=== PATIENT | female | born 1985 | race Caucasian/White ===

== ENCOUNTER → 2017-03-19 | Outpatient (CLI) | payer MEDICAID, OTHER ==
--- NOTE | 2017-03-19 09:39 | REP ---
Left wrist pain times 3 months. PRIORS: None. FINDINGS: No acute fracture or destructive osseous lesion. If the patient is experiencing chronic pain, consider followup with MRI.
== END ==
LOC: M CLY 08:46
PROVIDERS: ATTEND Family Medicine
DX: M25.532 Pain in left wrist (principal)

== ENCOUNTER → 2018-01-06 | Outpatient (CLI) | payer OTHER | LOC: M CLY 11:09 | DX: M25.562 Pain in left knee (principal) | CPT/HCPCS: 73564 ==

== ENCOUNTER → 2018-10-14 | Outpatient (REF) | payer OTHER | LOC: M SFHCCLAY 14:42 | PROVIDERS: ATTEND Family Medicine | DX: J02.9 Acute pharyngitis, unspecified (principal) ==

== ENCOUNTER → 2020-12-25 | Outpatient (CLI) | payer SELFPAY | LOC: M LABSMTC 13:38 | PROVIDERS: ATTEND Pediatrics | DX: Z11.52 Encounter for screening for COVID-19 (principal) ==

== ENCOUNTER → 2021-01-23 | Outpatient (REF) | payer OTHER, MEDICAID ==
[2021-01-23 14:51] LABS: HEMATOCRIT 43.9 % (36.0-47.0); HEMOGLOBIN 14.3 g/dl (12.0-15.5); MEAN CORPUSCULAR HEMOGLOBIN 30.6 pg (27.0-33.0); MEAN CORPUSCULAR HGB CONC 32.6 g/dl (32.0-36.5); MEAN CORPUSCULAR VOLUME 93.8 fl (80.0-96.0); PLATELET COUNT, AUTOMATED 289 10^3/uL (150-450); RED BLOOD COUNT 4.68 10^6/uL (4.00-5.40); WHITE BLOOD COUNT 8.3 10^3/uL (4.0-10.0)
[2021-01-23 15:24] LABS: FREE T4 0.83 NG/DL (0.76-1.46); THYROID STIMULATING HORMONE 0.859 uIU/ML (0.358-3.740)
[2021-01-25 14:40] LABS: CHLAMYDIA DNA AMPLIFICATION NEGATIVE (NEGATIVE); GC DNA AMPLIFICATION NEGATIVE (NEGATIVE)
== END ==
LOC: M PLALAB 11:46
PROVIDERS: ATTEND Nurse Practitioner Women's Health
DX: Z31.69 Encounter for other general counseling and advice on procreation (principal)

== ENCOUNTER → 2021-03-11 | Outpatient (REF) | payer OTHER, MEDICAID | LOC: M PLALAB 16:17 | PROVIDERS: ATTEND Obstetrics & Gynecology | DX: N97.9 Female infertility, unspecified (principal) ==

== ENCOUNTER → 2021-03-27 | Outpatient (REF) | payer OTHER, MEDICAID ==
[2021-03-27 20:00] LABS: ESTRADIOL 27.3 PG/ML; FOLLICLE STIMULATING HORMONE 8.2 mIU/mL; HEPATITIS C VIRUS ABY INDEX < 0.0 INDEX (<0.8); HIV 1&2 SCREEN CENTAUR NEGATIVE (NEGATIVE); LUTEINIZING HORMONE 4.8 mIU/mL; PROLACTIN 5.6 NG/ML
== END ==
LOC: M PLALAB 14:55
PROVIDERS: ATTEND Obstetrics & Gynecology
DX: N97.9 Female infertility, unspecified (principal)

== ENCOUNTER → 2021-04-05 | Outpatient (CLI) | payer OTHER ==
[~2021-04-05] MED LIST: ISOVUE-370 76% 100ML VIAL As Ordered ONE
== END ==
LOC: M RADPRO 12:21
PROVIDERS: ATTEND Obstetrics & Gynecology
DX: N97.9 Female infertility, unspecified (principal); Z53.9 Procedure and treatment not carried out, unspecified reason

== ENCOUNTER → 2021-04-15 | Outpatient (CLI) | payer OTHER, MEDICAID | LOC: M PLALAB 13:22 | PROVIDERS: ATTEND Obstetrics & Gynecology | DX: N97.9 Female infertility, unspecified (principal) ==

== ENCOUNTER → 2021-04-30 | Outpatient (CLI) | payer OTHER | LOC: M RADPRO 12:15 | PROVIDERS: ATTEND Specialist | DX: N92.6 Irregular menstruation, unspecified (principal) | CPT/HCPCS: 58340; 74740; Q9967 ==

== ENCOUNTER → 2022-06-26 | Outpatient (REF) | payer OTHER, MEDICAID ==
[2022-06-26 22:19] LABS: THYROID PEROXIDASE ANTIBODY < 28.0 U/ML (<60.0)
== END ==
LOC: M LAB REF 16:09
PROVIDERS: ATTEND Nurse Practitioner Adult Health
DX: R63.5 Abnormal weight gain (principal); Z13.89 Encounter for screening for other disorder

== ENCOUNTER → 2022-11-12 | Outpatient (REF) | payer OTHER, MEDICAID | LOC: M LAB REF 16:06 | PROVIDERS: ATTEND Nurse Practitioner Adult Health | DX: N39.0 Urinary tract infection, site not specified (principal) ==

== ENCOUNTER → 2023-08-12 | Outpatient (CLI) | payer OTHER, MEDICAID | LOC: M LAB 15:05 | PROVIDERS: ATTEND Nurse Practitioner Family | DX: R14.0 Abdominal distension (gaseous) (principal) ==

== ENCOUNTER → 2023-12-21 | Outpatient (REF) | payer OTHER, MEDICAID | LOC: M LAB REF 11:59 | PROVIDERS: ATTEND Physician Assistant Medical | DX: J02.9 Acute pharyngitis, unspecified (principal) ==

== ENCOUNTER 2024-06-02 08:22 | Day surgery (SDC) | payer OTHER, MEDICAID ==
[~2024-06-02] VITALS: Ht 167.6 cm; Wt 74.2 kg
[~2024-06-02 08:22] MED LIST changes: +IBUP200C29 PO; -ISOVUE-370 76% 100ML VIAL As Ordered ONE
[2024-06-02] MEDS: NS 1,000 ML IV ONE (09:44)
[2024-06-02] MEDS ORDERED: propofoL 500 MG/50 ML VIAL As Ordered ONE (10:47)
[2024-06-02] MEDS ORDERED: LIDOCAINE 2% 100MG/5ML SDV (FOR ANES.) As Ordered ONE (10:47)
[2024-06-02 11:00] VITALS: TEMP 98.1
[2024-06-02 11:15] VITALS: BP 145/68; O2SAT 100
== END 2024-06-02 11:22 | disposition home or self-care (01) ==
LOC: M OPP 08:22
PROVIDERS: ATTEND Internal Medicine Gastroenterology
DX: K64.8 Other hemorrhoids (principal); K58.1 Irritable bowel syndrome with constipation; F17.290 Nicotine dependence, other tobacco product, uncomplicated; Z79.1 Long term (current) use of non-steroidal anti-inflammatories (NSAID); Z88.8 Allergy status to other drugs, medicaments and biological substances; Z91.040 Latex allergy status

== ENCOUNTER → 2024-06-22 | Outpatient (CLI) | payer OTHER, MEDICAID | LOC: M RAD 14:56 | PROVIDERS: ATTEND Physician Assistant | DX: S60.922A Unspecified superficial injury of left hand, initial encounter (principal); Y93.9 Activity, unspecified; Y92.9 Unspecified place or not applicable ==

== ENCOUNTER 2024-11-24 10:43 | Emergency (ER) | payer OTHER, MEDICAID ==
[~2024-11-24] VITALS: Ht 167.6 cm; Wt 76.1 kg
[2024-11-24 16:16] VITALS: BP 128/72; TEMP 98; O2SAT 100
== END 2024-11-24 16:17 | disposition home or self-care (01) ==
LOC: M ED 10:43
DX: J09.X2 Influenza due to identified novel influenza A virus with other respiratory manifestations (principal); Z88.8 Allergy status to other drugs, medicaments and biological substances; Z91.040 Latex allergy status

== ENCOUNTER 2025-05-10 12:53 | Emergency (ER) | payer OTHER, MEDICAID ==
[2025-05-10] VITALS (7 sets, daily range): BP systolic 115–130; BP diastolic 62–80; TEMP 98–99.6; O2SAT 96–99
[~2025-05-10] VITALS: Ht 167.6 cm; Wt 73.0 kg
[2025-05-10 13:52] LABS: INR 0.92
[2025-05-10 13:59] LABS: PLATELET COUNT, AUTOMATED 9 10^3/uL (150-450)
[2025-05-10 14:10] LABS: ALT/SGPT 21 U/L (7.0-40); AST/SGOT 29 U/L (<34); CALCIUM LEVEL 8.8 MG/DL (8.5-10.1); CARBON DIOXIDE LEVEL 22 MMOL/L (20-31); CHLORIDE LEVEL 106 MMOL/L (98-107); CREATININE FOR GFR 0.76 MG/DL (0.55-1.30); GLOMERULAR FILTRATION RATE > 90.0 (>60); POTASSIUM SERUM 4.1 MMOL/L (3.5-5.1); SODIUM LEVEL 141 MMOL/L (136-145)
[2025-05-10 14:21] LABS: EOSINOPHILS 1 % (0-3); LYMPHOCYTES 21 % (16-44); METAMYELOCYTES 1 % (0-0); MONOCYTES 9 % (0-5); MYELOCYTES 2 % (0-0); NEUTROPHILS 26 % (28-66); PROMYELOCYTES 4 % (0-0)
[2025-05-10 14:25] LABS: BLAST CELLS 36 % (0-0); PLATELET ESTIMATE MARKED DECREASE (NORMAL)
[2025-05-10 15:09] LABS: LDH LACTATE DEHYDROGENASE 372 U/L (120-246)
[2025-05-10 18:20] LABS: VITAMIN B12 LEVEL 727 PG/ML (211-911)
[2025-05-10] MEDS: ACETAMINOPHEN 325 MG TAB PO STA (20:40)
[2025-05-10] MEDS: ONDANSETRON 4MG ORAL DISINTEGRATING TAB PO ONE (21:12)
== END 2025-05-10 21:02 | disposition short-term general hospital (02) ==
LOC: M ED 12:53
DX: R79.9 Abnormal finding of blood chemistry, unspecified (principal); F17.290 Nicotine dependence, other tobacco product, uncomplicated; Z88.8 Allergy status to other drugs, medicaments and biological substances; Z91.040 Latex allergy status
CPT/HCPCS: 36430; 80053; 80503; 82607; 83615; 84550; 85025; 85049; 85055; 85384; 85610; 85730; 86850; 86900; 86901; 87426; 99285; P9034

== ENCOUNTER 2025-07-27 17:07 | Emergency (ER) | payer OTHER ==
[~2025-07-27] VITALS: Ht 167.6 cm; Wt 72.7 kg
[~2025-07-27 17:07] MED LIST changes: +ACET1TAB55 PO; +ACYC-438; +GABA-1171; +LEVO1TAB39; +LORA1TAB23 PO; +MEDR10TA9; +NORM0.9I21; +ONDA-84; +PANT40TA29; +POSA100T; +SUCR1ORA
[2025-07-27] MEDS ORDERED: NEUR100C PO (17:39)
[2025-07-27] MEDS ORDERED: NOXA1TAB PO (17:39)
[2025-07-27] MEDS ORDERED: LEVO1TAB39 PO (17:39)
[2025-07-27] MEDS ORDERED: ACET-683 PO (17:39)
[2025-07-27] MEDS ORDERED: BD P0.9I2 IV (17:39)
[2025-07-27] MEDS ORDERED: PANT40TA29 PO (17:39)
[2025-07-27] MEDS ORDERED: ACYC-438 PO (17:39)
[2025-07-27] MEDS: diphenhydrAMINE 50 MG/ML VIAL IV STA (18:36)
[2025-07-27 18:59] VITALS: BP 114/63; TEMP 97.6; O2SAT 100
[2025-07-27 19:16] VITALS: BP 108/61; TEMP 97.6; O2SAT 100
[2025-07-27 20:17] VITALS: BP 108/57; TEMP 97; O2SAT 98
[2025-07-27 21:09] VITALS: BP 103/59; TEMP 97.3; O2SAT 100
[2025-07-27 21:25] VITALS: BP 96/57; TEMP 97.9; O2SAT 98
[2025-07-27] MEDS: ACETAMINOPHEN 500 MG TAB PO ONE (22:32)
[2025-07-27 23:00] VITALS: BP 101/57; TEMP 97.9; O2SAT 100
[2025-07-28] MEDS ORDERED: LORA1TAB23 PO (16:53)
[2025-08-01] MEDS ORDERED: ACET1TAB55 PO (14:22)
[2025-08-01] MEDS ORDERED: DIPH12.529 PO (14:22)
== END 2025-07-27 23:03 | disposition home or self-care (01) ==
LOC: M ED 17:07
DX: C92.00 Acute myeloblastic leukemia, not having achieved remission (principal); D69.6 Thrombocytopenia, unspecified
CPT/HCPCS: 36430; 80053; 83615; 85025; 85049; 85055; 96374; 99285; J1200; P9034

== ENCOUNTER 2025-07-28 15:16 | Observation (INO) | payer OTHER ==
[2025-07-28] VITALS (7 sets, daily range): BP systolic 94–112; BP diastolic 50–72; TEMP 97.1–98.7; O2SAT 97–100
[~2025-07-28] VITALS: Ht 167.6 cm; Wt 70.0 kg
[~2025-07-28 15:16] MED LIST changes: +ACET-683 PO; +ACYC-438 PO; +BD P0.9I2 IV; +LEVO1TAB39 PO; +NEUR100C PO; +NOXA1TAB PO; +PANT40TA29 PO
[2025-07-28] MEDS ORDERED: HEPARIN LOCK FLUSH 100 UNITS/ML 3 ML SYRINGE IV PRN (15:35)
[2025-07-28] MEDS ORDERED: SODIUM CHLORIDE 0.9% INJ 10 ML SYR IV PRN (15:35)
[2025-07-28] MEDS: HEPARIN LOCK FLUSH 100 UNITS/ML 3 ML SYRINGE IV SCH (15:55)
[2025-07-28] MEDS ORDERED: LORA1TAB23 PO (16:53)
[2025-07-28] MEDS ORDERED: HOME MED LIST COMPLETE! XX SCH (16:55)
[2025-07-28] MEDS: diphenhydrAMINE 50 MG/ML VIAL IV STA (16:59)
[2025-07-28] MEDS ORDERED: LORazepam 1 MG TAB PO PRN (18:55)
[2025-07-28] MEDS: SODIUM CHLORIDE 0.9% INJ 10 ML SYR IV SCH (19:45)
[2025-07-28] MEDS: ACYCLOVIR 200 MG CAPSULE PO SCH (21:27)
[2025-07-28] MEDS: GABAPENTIN 100 MG CAP PO SCH (21:27)
[2025-07-29] VITALS (13 sets, daily range): BP systolic 95–131; BP diastolic 50–77; TEMP 96.5–97.8; O2SAT 97–100
[2025-07-29 07:21] LABS: PLATELET COUNT, AUTOMATED 16 10^3/uL (150-450)
[2025-07-29 07:33] LABS: CALCIUM LEVEL 8.6 MG/DL (8.5-10.1); CARBON DIOXIDE LEVEL 26 MMOL/L (20-31); CHLORIDE LEVEL 109 MMOL/L (98-107); CREATININE FOR GFR 0.74 MG/DL (0.55-1.30); GLOMERULAR FILTRATION RATE > 90.0 (>60); POTASSIUM SERUM 4.4 MMOL/L (3.5-5.1); SODIUM LEVEL 144 MMOL/L (136-145)
[2025-07-29] MEDS: PANTOPRAZOLE 40MG TAB PO SCH (08:32)
[2025-07-29] MEDS: ACETAMINOPHEN 325 MG TAB PO PRN (08:52)
[2025-07-29] MEDS ORDERED: ENTER DRUG NAME HERE (PATIENT'S OWN MED) PO SCH (09:00)
[2025-07-29] MEDS ORDERED: diphenhydrAMINE 50 MG/ML VIAL IV ONE (11:45)
[2025-07-29] MEDS: diphenhydrAMINE 50 MG/ML VIAL IV ONE (13:27)
[2025-07-30 03:54] VITALS: BP 106/57; TEMP 97.8; O2SAT 98
[2025-07-30 07:40] LABS: BASO # 0.0 10^3/uL (0.0-0.2); BASO % 0.0 % (0.0-1.0); EOS # 0.0 10^3/uL (0.0-0.5); EOS % 8.1 % (0.0-3.0); LYMPH # 0.3 10^3/uL (1.5-5.0); LYMPH % 89.2 % (24.0-44.0); MONO # 0.0 10^3/uL (0.0-0.8); MONO % 0.0 % (2.0-8.0); NEUTROPHILS % 2.7 % (36.0-66.0)
[2025-07-30 07:41] LABS: NEUTROPHILS # 0.0 10^3/uL (1.5-8.5); PLATELET COUNT, AUTOMATED 18 10^3/uL (150-450)
[2025-07-30 08:19] VITALS: BP 105/57; TEMP 97.8; O2SAT 100
[2025-07-30 10:31] VITALS: BP 121/60; TEMP 97.7; O2SAT 99
[2025-07-30 10:51] VITALS: BP 124/78; TEMP 97.6; O2SAT 99
[2025-07-30 13:05] VITALS: BP 102/66; TEMP 97.2; O2SAT 100
[2025-08-01] MEDS ORDERED: ACET1TAB55 PO (14:22)
[2025-08-01] MEDS ORDERED: DIPH12.529 PO (14:22)
== END 2025-07-30 13:13 | disposition home or self-care (01) ==
LOC: M ED 15:16 → M ED INP 18:51 → M PCU 21:09
PROVIDERS: ADMIT Internal Medicine; ATTEND Internal Medicine
DX: C92.A0 Acute myeloid leukemia with multilineage dysplasia, not having achieved remission (principal); D61.810 Antineoplastic chemotherapy induced pancytopenia; Z79.899 Other long term (current) drug therapy; G62.9 Polyneuropathy, unspecified; F41.9 Anxiety disorder, unspecified
CPT/HCPCS: 36430; 70450; 80048; 85025; 85027; 85049; 85055; 86850; 86900; 86901; 86920; 96374; 96375; 96376; 99285; J1200; J1642; P9016; P9034

== ENCOUNTER 2025-08-05 11:13 | Emergency (ER) | payer OTHER ==
[~2025-08-05] VITALS: Ht 167.6 cm; Wt 71.8 kg
[~2025-08-05 11:13] MED LIST changes: +DIPH12.529 PO
[2025-08-05 12:27] LABS: PLATELET COUNT, AUTOMATED 31 10^3/uL (150-450)
[2025-08-05 12:47] LABS: ALT/SGPT 104 U/L (7.0-40); AST/SGOT 47 U/L (<34); CALCIUM LEVEL 9.1 MG/DL (8.5-10.1); CARBON DIOXIDE LEVEL 25 MMOL/L (20-31); CHLORIDE LEVEL 108 MMOL/L (98-107); CREATININE FOR GFR 0.64 MG/DL (0.55-1.30); GLOMERULAR FILTRATION RATE > 90.0 (>60); POTASSIUM SERUM 3.9 MMOL/L (3.5-5.1); SODIUM LEVEL 144 MMOL/L (136-145)
[2025-08-05 12:49] LABS: LYMPHOCYTES 6 % (16-44); METAMYELOCYTES 2 % (0-0); MONOCYTES 7 % (0-5); MYELOCYTES 1 % (0-0); NEUTROPHILS 79 % (28-66)
[2025-08-05 12:53] LABS: DOHLE BODIES 1+; PLATELET ESTIMATE MARKED DECREASE (NORMAL)
[2025-08-05] MEDS: NS (Normal Saline) 0.9% 1,000 ML IV ONE (13:15)
[2025-08-05 13:28] LABS: CK-MB VALUE MASS < 1.0 NG/ML (<3.6)
[2025-08-05 13:29] LABS: CPK CREATINE PHOSPHOKINASE 24 U/L (34-145)
[2025-08-05 13:32] LABS: HCG, SERUM QUALITATIVE NEGATIVE (NEGATIVE)
[2025-08-05] MEDS ORDERED: ISOVUE-370 76% 100 ML VIAL As Ordered ONE (13:53)
[2025-08-05 14:10] LABS: CK-MB VALUE MASS < 1.0 NG/ML (<3.6)
[2025-08-05 14:12] LABS: CPK CREATINE PHOSPHOKINASE 25 U/L (34-145)
[2025-08-05] MEDS: HEPARIN LOCK FLUSH 100 UNITS/ML 3 ML SYRINGE IV PRN (15:33)
[2025-08-05] MEDS: SODIUM CHLORIDE 0.9% INJ 10 ML SYR IV PRN (15:34)
[2025-08-05 15:52] LABS: CK-MB VALUE MASS < 1.0 NG/ML (<3.6)
[2025-08-05 15:54] LABS: CPK CREATINE PHOSPHOKINASE 21 U/L (34-145)
[2025-08-05 16:16] VITALS: TEMP 97.7
[2025-08-05 16:31] VITALS: BP 109/76; O2SAT 100
[2025-08-05] MEDS: SODIUM CHLORIDE 0.9% INJ 10 ML SYR IV SCH (16:41)
[2025-08-05] MEDS: HEPARIN LOCK FLUSH 100 UNITS/ML 3 ML SYRINGE IV SCH (16:41)
== END 2025-08-05 16:51 | disposition home or self-care (01) ==
LOC: M ED 11:13
DX: R42 Dizziness and giddiness (principal); C92.00 Acute myeloblastic leukemia, not having achieved remission; G62.9 Polyneuropathy, unspecified; Z79.899 Other long term (current) drug therapy; Z88.8 Allergy status to other drugs, medicaments and biological substances; Z91.040 Latex allergy status
CPT/HCPCS: 70450; 71275; 80047; 80053; 82550; 82553; 84484; 84703; 85025; 85049; 85055; 93005; 93971; 96360; 96361; 99285; J1642; Q9967

== ENCOUNTER 2025-09-11 19:46 | Emergency (ER) | payer OTHER ==
[~2025-09-11] VITALS: Ht 167.6 cm; Wt 68.2 kg
[2025-09-11 19:49] VITALS: TEMP 97.2
[2025-09-11] MEDS: ONDANSETRON 4MG/2ML VIAL IV ONE (20:40)
[2025-09-11] MEDS: ACETAMINOPHEN *IV* 1,000 MG in IV 1 EA IV ONE (20:40)
[2025-09-11 20:50] LABS: BASO # 0.0 10^3/uL (0.0-0.2); BASO % 0.0 % (0.0-1.0); EOS # 0.0 10^3/uL (0.0-0.5); EOS % 0.0 % (0.0-3.0); LYMPH # 0.2 10^3/uL (1.5-5.0); LYMPH % 27.5 % (24.0-44.0); MONO # 0.0 10^3/uL (0.0-0.8); MONO % 0.0 % (2.0-8.0); NEUTROPHILS % 66.7 % (36.0-66.0)
[2025-09-11 20:54] LABS: NEUTROPHILS # 0.5 10^3/uL (1.5-8.5)
[2025-09-11 20:55] LABS: PLATELET COUNT, AUTOMATED 19 10^3/uL (150-450)
[2025-09-11 21:24] LABS: ALT/SGPT 33 U/L (7.0-40); AST/SGOT 46 U/L (<34); CALCIUM LEVEL 8.4 MG/DL (8.5-10.1); CARBON DIOXIDE LEVEL 25 MMOL/L (20-31); CHLORIDE LEVEL 108 MMOL/L (98-107); CREATININE FOR GFR 0.59 MG/DL (0.55-1.30); GLOMERULAR FILTRATION RATE > 90.0 (>60); POTASSIUM SERUM 3.4 MMOL/L (3.5-5.1); SODIUM LEVEL 143 MMOL/L (136-145)
[2025-09-11] MEDS ORDERED: ISOVUE-370 76% 100 ML VIAL As Ordered ONE (21:27)
[2025-09-11] MEDS ORDERED: PEPC1TAB5 PO (23:52)
[2025-09-11] MEDS ORDERED: CARA1TAB6 PO (23:52)
[2025-09-12] MEDS: SUCRALFATE 1 GM TAB PO ONE (00:07)
[2025-09-12] MEDS: FAMOTIDINE IV BAG 20 MG in IV 1 EA IV ONE (00:07)
[2025-09-12 00:29] VITALS: BP 105/67; O2SAT 100
== END 2025-09-12 00:50 | disposition home or self-care (01) ==
LOC: M ED 19:46
DX: K29.80 Duodenitis without bleeding (principal); N80.9 Endometriosis, unspecified; Z85.6 Personal history of leukemia; Z92.21 Personal history of antineoplastic chemotherapy; Z79.899 Other long term (current) drug therapy; Z88.8 Allergy status to other drugs, medicaments and biological substances; Z91.040 Latex allergy status
CPT/HCPCS: 36430; 36592; 74177; 76705; 80048; 80053; 80076; 83605; 83690; 85025; 85027; 85049; 85055; 86850; 86900; 86901; 93041; 96365; 96366; 96368; 96372; 96375; 99285; J0134; J1308; J1642; J2405; P9034; Q5111; Q9967

== ENCOUNTER 2025-09-13 14:11 | Outpatient (CLI) | payer OTHER ==
[2025-09-13] VITALS (9 sets, daily range): BP systolic 103–123; BP diastolic 60–76; TEMP 97.8–98.7; O2SAT 98–100
[~2025-09-13 14:11] MED LIST changes: +CARA1TAB6 PO; +PEPC1TAB5 PO
[2025-09-13] MEDS: ACETAMINOPHEN 650 MG PO ONE (16:06)
== END 2025-09-13 22:15 ==
LOC: M OPCLI5PR 14:11 → M MS5PR 14:12 → M OPCLI5PR 22:15
PROVIDERS: ATTEND Internal Medicine Medical Oncology
DX: C92.00 Acute myeloblastic leukemia, not having achieved remission (principal); Z88.8 Allergy status to other drugs, medicaments and biological substances; Z91.040 Latex allergy status

== ENCOUNTER 2025-09-15 11:16 | Observation (INO) | payer OTHER ==
[2025-09-15] VITALS (7 sets, daily range): BP systolic 103–131; BP diastolic 66–77; TEMP 97.3–98.3; O2SAT 99–100
[~2025-09-15] VITALS: Ht 167.6 cm; Wt 73.9 kg
[2025-09-15] MEDS ORDERED: POSA100T PO (12:26)
[2025-09-15] MEDS ORDERED: ACET-683 PO (12:26)
[2025-09-15] MEDS ORDERED: FAMO20TA4 PO (12:26)
[2025-09-15] MEDS ORDERED: SUCR1TA PO (12:29)
[2025-09-15] MEDS ORDERED: HOME MED LIST COMPLETE! XX SCH (12:30)
[2025-09-15 12:41] LABS: BASO # 0.0 10^3/uL (0.0-0.2); BASO % 0.0 % (0.0-1.0); EOS # 0.0 10^3/uL (0.0-0.5); EOS % 0.0 % (0.0-3.0); LYMPH # 0.2 10^3/uL (1.5-5.0); LYMPH % 93.8 % (24.0-44.0); MONO # 0.0 10^3/uL (0.0-0.8); MONO % 0.0 % (2.0-8.0); NEUTROPHILS % 6.2 % (36.0-66.0)
[2025-09-15 12:46] LABS: NEUTROPHILS # 0.0 10^3/uL (1.5-8.5)
[2025-09-15 12:49] LABS: PLATELET COUNT, AUTOMATED 4 10^3/uL (150-450)
[2025-09-15 12:52] LABS: CALCIUM LEVEL 8.8 MG/DL (8.5-10.1); CARBON DIOXIDE LEVEL 24 MMOL/L (20-31); CHLORIDE LEVEL 110 MMOL/L (98-107); CREATININE FOR GFR 0.64 MG/DL (0.55-1.30); GLOMERULAR FILTRATION RATE > 90.0 (>60); POTASSIUM SERUM 3.6 MMOL/L (3.5-5.1); SODIUM LEVEL 144 MMOL/L (136-145)
[2025-09-15] MEDS ORDERED: LORazepam 1 MG TAB PO PRN (18:15)
[2025-09-15] MEDS: ACETAMINOPHEN 500 MG TAB PO PRN (19:34)
[2025-09-15] MEDS: FAMOTIDINE 20 MG TAB PO SCH (20:46)
[2025-09-15] MEDS: ACYCLOVIR 200 MG CAPSULE PO SCH (20:46)
[2025-09-15] MEDS: GABAPENTIN 100 MG CAP PO SCH (20:47)
[2025-09-15] MEDS: SUCRALFATE 1 GM TAB PO SCH (21:49)
[2025-09-16] VITALS (8 sets, daily range): BP systolic 94–115; BP diastolic 55–78; TEMP 97–97.9; O2SAT 98–100
[2025-09-16] MEDS: PANTOPRAZOLE 40MG TAB PO SCH (08:17)
== END 2025-09-16 15:04 | disposition home or self-care (01) ==
LOC: M ED 11:16 → M ED INP 11:17 → M MS4PR 15:45
PROVIDERS: ADMIT Student in an Organized Health Care Education/Training Program; ATTEND Student in an Organized Health Care Education/Training Program
DX: C92.00 Acute myeloblastic leukemia, not having achieved remission (principal); D61.818 Other pancytopenia; K21.9 Gastro-esophageal reflux disease without esophagitis; Z79.899 Other long term (current) drug therapy; G62.9 Polyneuropathy, unspecified; F41.9 Anxiety disorder, unspecified
CPT/HCPCS: 36430; 80048; 85025; 85049; 85055; 86850; 86900; 86901; 86920; 99285; P9034

== ENCOUNTER 2025-09-19 14:28 | Inpatient (IN) | payer OTHER ==
[~2025-09-19] VITALS: Ht 167.6 cm; Wt 74.5 kg
[~2025-09-19 14:28] MED LIST changes: +FAMO20TA4 PO; +POSA100T PO; +SUCR1TA PO
[2025-09-19 17:52] LABS: BASO # 0.0 10^3/uL (0.0-0.2); BASO % 0.0 % (0.0-1.0); EOS # 0.0 10^3/uL (0.0-0.5); EOS % 0.0 % (0.0-3.0); LYMPH # 0.3 10^3/uL (1.5-5.0); LYMPH % 47.5 % (24.0-44.0); MONO # 0.0 10^3/uL (0.0-0.8); MONO % 6.8 % (2.0-8.0); NEUTROPHILS % 44.0 % (36.0-66.0)
[2025-09-19 17:54] LABS: NEUTROPHILS # 0.3 10^3/uL (1.5-8.5); PLATELET COUNT, AUTOMATED 1 10^3/uL (150-450)
[2025-09-19 18:08] LABS: INR 0.95
[2025-09-19 18:14] LABS: ALT/SGPT 21 U/L (7.0-40); AST/SGOT 24 U/L (<34); CALCIUM LEVEL 9.0 MG/DL (8.5-10.1); CARBON DIOXIDE LEVEL 28 MMOL/L (20-31); CHLORIDE LEVEL 107 MMOL/L (98-107); CREATININE FOR GFR 0.49 MG/DL (0.55-1.30); GLOMERULAR FILTRATION RATE > 90.0 (>60); MAGNESIUM LEVEL 2.0 MG/DL (1.8-2.4); PHOSPHORUS LEVEL 3.5 MG/DL (2.5-4.9); POTASSIUM SERUM 3.6 MMOL/L (3.5-5.1); SODIUM LEVEL 143 MMOL/L (136-145); VITAMIN B12 LEVEL 882 PG/ML (211-911)
[2025-09-19] MEDS ORDERED: HOME MED LIST COMPLETE! XX SCH (19:15)
[2025-09-19] MEDS ORDERED: MAALOX 30 ML SUSP *UDC PO PRN (20:20)
[2025-09-19] MEDS: diphenhydrAMINE 50 MG/ML VIAL IV STA (20:38)
[2025-09-19 21:41] VITALS: BP 110/67; TEMP 97.1; O2SAT 98
[2025-09-19 21:42] VITALS: BP 110/67; TEMP 97.1; O2SAT 98
[2025-09-19 21:57] VITALS: BP 103/62; TEMP 97.3; O2SAT 97
[2025-09-19 22:30] VITALS: BP 117/71; TEMP 97.5; O2SAT 100
[2025-09-19] MEDS: GABAPENTIN 100 MG CAP PO SCH (22:43)
[2025-09-19] MEDS: FAMOTIDINE 20 MG TAB PO SCH (22:43)
[2025-09-19] MEDS: SUCRALFATE 1 GM TAB PO SCH (23:32)
[2025-09-19 23:33] VITALS: BP 96/60; TEMP 97.9; O2SAT 100
[2025-09-20 00:20] VITALS: BP 113/74; TEMP 97.7; O2SAT 100
[2025-09-20 00:35] VITALS: BP 124/75; TEMP 98.2; TEMP 98.5; O2SAT 100
[2025-09-20] MEDS: ACETAMINOPHEN 500 MG TAB PO PRN (00:43)
[2025-09-20] MEDS: LORazepam 1 MG TAB PO PRN (00:44)
[2025-09-20 01:35] VITALS: BP 94/55; TEMP 97.3; O2SAT 98
[2025-09-20 02:20] VITALS: BP 94/55; TEMP 97.8; O2SAT 97
[2025-09-20 04:35] LABS: BASO # 0.0 10^3/uL (0.0-0.2); BASO % 0.0 % (0.0-1.0); EOS # 0.0 10^3/uL (0.0-0.5); EOS % 0.0 % (0.0-3.0); LYMPH # 0.3 10^3/uL (1.5-5.0); LYMPH % 41.5 % (24.0-44.0); MONO # 0.0 10^3/uL (0.0-0.8); MONO % 6.2 % (2.0-8.0); NEUTROPHILS % 40.0 % (36.0-66.0)
[2025-09-20 04:44] LABS: NEUTROPHILS # 0.3 10^3/uL (1.5-8.5); PLATELET COUNT, AUTOMATED 11 10^3/uL (150-450)
[2025-09-20 05:12] LABS: ALT/SGPT 23 U/L (7.0-40); AST/SGOT 25 U/L (<34); CALCIUM LEVEL 8.8 MG/DL (8.5-10.1); CARBON DIOXIDE LEVEL 26 MMOL/L (20-31); CHLORIDE LEVEL 108 MMOL/L (98-107); CREATININE FOR GFR 0.54 MG/DL (0.55-1.30); GLOMERULAR FILTRATION RATE > 90.0 (>60); POTASSIUM SERUM 3.8 MMOL/L (3.5-5.1); SODIUM LEVEL 144 MMOL/L (136-145)
[2025-09-20] MEDS: PANTOPRAZOLE 40MG TAB PO SCH (08:45)
[2025-09-20 12:16] VITALS: BP 126/67; TEMP 98.2; O2SAT 100
[2025-09-20] MEDS: ACYCLOVIR 200 MG CAPSULE PO ONE (12:20)
[2025-09-20] MEDS: ACYCLOVIR 200 MG CAPSULE PO SCH (20:05)
[2025-09-20] MEDS: ACETAMINOPHEN 325 MG TAB PO PRN (20:06)
[2025-09-20 21:03] VITALS: BP 104/66; TEMP 98.3; O2SAT 99
[2025-09-20] MEDS: diphenhydrAMINE 50 MG/ML VIAL IV ONE (23:30)
[2025-09-21] VITALS (10 sets, daily range): BP systolic 99–131; BP diastolic 57–83; TEMP 98–98.6; O2SAT 99–100
[2025-09-21] MEDS: PANTOPRAZOLE 40MG TAB PO SCH (06:08)
[2025-09-21] MEDS ORDERED: diphenhydrAMINE 50 MG/ML VIAL IM STA (08:08)
[2025-09-21] MEDS: diphenhydrAMINE 50 MG/ML VIAL IV STA (08:40)
[2025-09-21 08:55] LABS: PLATELET COUNT, AUTOMATED 4 10^3/uL (150-450)
[2025-09-21 09:54] LABS: LYMPHOCYTES 26 % (16-44); MONOCYTES 13 % (0-5); NEUTROPHILS 56 % (28-66)
[2025-09-21 09:55] LABS: PLATELET ESTIMATE DECREASED (NORMAL)
[2025-09-21 14:26] LABS: BASO # 0.0 10^3/uL (0.0-0.2); BASO % 0.0 % (0.0-1.0); EOS # 0.0 10^3/uL (0.0-0.5); EOS % 0.0 % (0.0-3.0); LYMPH # 0.4 10^3/uL (1.5-5.0); LYMPH % 29.7 % (24.0-44.0); MONO # 0.0 10^3/uL (0.0-0.8); MONO % 1.6 % (2.0-8.0); NEUTROPHILS % 67.1 % (36.0-66.0)
[2025-09-21 14:47] LABS: NEUTROPHILS # 0.9 10^3/uL (1.5-8.5); PLATELET COUNT, AUTOMATED 16 10^3/uL (150-450)
[2025-09-22 00:51] VITALS: BP 111/69; TEMP 98.1; O2SAT 100
[2025-09-22] MEDS: diphenhydrAMINE 50 MG/ML VIAL IV PRN (00:56)
[2025-09-22 01:15] VITALS: BP 111/55; TEMP 98.4; O2SAT 96
[2025-09-22 02:15] VITALS: BP 116/63; TEMP 98.2; O2SAT 100
[2025-09-22 03:11] VITALS: BP 104/61; TEMP 98.5; O2SAT 99
[2025-09-22 03:34] VITALS: BP 109/63; TEMP 98.1; O2SAT 100
[2025-09-22 04:35] VITALS: BP 109/63; TEMP 98.4; O2SAT 96
[2025-09-22 07:17] LABS: PLATELET COUNT, AUTOMATED 32 10^3/uL (150-450)
[2025-09-22 08:04] LABS: ATYPICAL LYMPH 1 % (0-5); LYMPHOCYTES 25 % (16-44); MONOCYTES 7 % (0-5); NEUTROPHILS 62 % (28-66)
[2025-09-22 08:06] LABS: PLATELET ESTIMATE MARKED DECREASE (NORMAL)
== END 2025-09-22 11:18 | disposition home or self-care (01) | DRG 809 ==
LOC: M ED 14:28 → M ED INP 14:29 → M MSPAV 09-20 12:05 → OBSVTOIN 09-21 15:09
PROVIDERS: ADMIT Student in an Organized Health Care Education/Training Program; ATTEND Internal Medicine
PROC: 30233N1 Transfusion of Nonautologous Red Blood Cells into Peripheral Vein, Percutaneous Approach (ICD-10-PCS; principal; 2025-09-19)
PROC: 30233R1 Transfusion of Nonautologous Platelets into Peripheral Vein, Percutaneous Approach (ICD-10-PCS; 2025-09-20)
DX: D61.810 Antineoplastic chemotherapy induced pancytopenia (principal); C92.90 Myeloid leukemia, unspecified, not having achieved remission; G62.9 Polyneuropathy, unspecified; K21.9 Gastro-esophageal reflux disease without esophagitis; F41.9 Anxiety disorder, unspecified; N80.9 Endometriosis, unspecified; T45.1X5A Adverse effect of antineoplastic and immunosuppressive drugs, initial encounter; Z79.899 Other long term (current) drug therapy; Z88.8 Allergy status to other drugs, medicaments and biological substances; Z91.040 Latex allergy status